=== PATIENT | male | born 1955 | race Caucasian/White ===

== ENCOUNTER 2021-08-30 10:40 | Outpatient (CLI) | payer MEDICAID ==
[2021-08-30 18:22] LABS: BASOPHILS # (AUTO) 0.1 10^3/uL (0.0-0.1); BASOPHILS % (AUTO) 1.2 %; EOSINOPHILS # (AUTO) 0.1 10^3/uL (0.0-0.7); EOSINOPHILS % (AUTO) 1.8 %; HCT - HEMATOCRIT 47.1 % (42.0-52.0); HGB - HEMOGLOBIN 15.3 g/dL (14.0-18.0); LYMPHOCYTES # (AUTO) 1.4 10^3/uL (1.5-3.5); LYMPHOCYTES % (AUTO) 29.5 %; MEAN CORPUSCULAR HEMOGLOBIN 32.1 pg (27.0-31.0); MEAN CORPUSCULAR HGB CONC 32.5 g/dL (32.0-36.0); MEAN CORPUSCULAR VOLUME 98.9 fL (80.0-94.0); MONOCYTES # (AUTO) 0.4 10^3/uL (0.0-1.0); MONOCYTES % (AUTO) 7.4 %; NEUTROPHILS # (AUTO) 2.9 10^3/uL (1.5-6.6); NEUTROPHILS % (AUTO) 59.9 %; PLT - PLATELET COUNT 268 10^3/uL (130-450); RED BLOOD COUNT 4.76 10^6/uL (4.70-6.10); RED CELL DISTRIBUTION WIDTH 12.1 % (12.0-15.0); WHITE BLOOD COUNT 4.9 x10^3/uL (4.8-10.8)
[2021-08-30 18:57] LABS: ALBUMIN 4.7 g/dL (3.2-5.5); ALBUMIN/GLOBULIN RATIO 1.8 (1.0-2.2); ALKALINE PHOSPHATASE 45 IU/L (42-121); ALT ALANINE AMINOTRANSFERASE 26 IU/L (10-60); AST ASPARTATE AMINOTRANSFERASE 24 IU/L (10-42); BILIRUBIN,TOTAL 1.1 mg/dL (0.2-1.0); BUN - BLOOD UREA NITROGEN 19 mg/dL (6-20); CALCIUM 9.8 mg/dL (8.5-10.3); CARBON DIOXIDE - CO2 26 mmol/L (21-32); CHLORIDE 109 mmol/L (101-111); CHOL/HDL RATIO 3.7 (<5.0); CHOLESTEROL 259 mg/dL; CREATININE 0.8 mg/dL (0.6-1.2); GFR - MDRD 97 (>89); GLUCOSE 103 mg/dL (70-100); HDL CHOLESTEROL 70 mg/dL; LDL CHOLESTEROL,CALCULATED 167 mg/dL; LDL/HDL RATIO 2.4 (<3.6); POTASSIUM 4.3 mmol/L (3.5-5.0); SODIUM 145 mmol/L (135-145); TOTAL PROTEIN 7.3 g/dL (6.7-8.2); TRIGLYCERIDES 112 mg/dL; VLDL CHOLESTEROL 22 mg/dL
== END 2021-08-30 10:41 | disposition home or self-care (01) ==
LOC: LAB.N 10:40
PROVIDERS: ATTEND Internal Medicine
DX: R10.32 Left lower quadrant pain (principal); R06.09 Other forms of dyspnea; R61 Generalized hyperhidrosis; Z13.6 Encounter for screening for cardiovascular disorders
CPT/HCPCS: 36415; 80053; 80061; 83721; 83880; 84443; 85025

== ENCOUNTER 2021-09-05 11:45 | Outpatient (CLI) | payer MEDICAID ==
[2021-09-05] MEDS ORDERED: IOVERSOL 320 50 ML VIAL ONE (12:01)
[2021-09-05] MEDS ORDERED: IOVERSOL 320 100 ML VIAL IVP ONE (12:01)
--- NOTE | 2021-09-05 13:50 | CT Report ---
PROCEDURE: Abdomen/Pelvis W INDICATIONS: LLQ PAIN CONTRAST: IV CONTRAST: Optiray 320 ml: 100 PO CONTRAST: Optiray 320 ml50 TECHNIQUE: After the administration of oral and intravenous contrast, 5 mm thick sections acquired from the diap hragms to the symphysis. 5 mm thick coronal and sagittal reformats were acquired. For radiation dos e reduction, the following was used: automated exposure control, adjustment of mA and/or kV accordin g to patient size. COMPARISON: None. FINDINGS: Image quality: Excellent. ABDOMEN: Lung bases: Lung bases are clear. Heart size is normal. Solid organs: Liver and spleen are normal in size and enhancement. Gallbladder is unremarkable. Bi liary system is non dilated. Pancreas enhances normally. No adrenal nodules. Kidneys demonstrate n ormal size and enhancement, without hydronephrosis. Peritoneum and bowel: Bowel loops demonstrate normal wall thickness and caliber. Normal appendix. No free fluid or air. Nodes and vessels: No retroperitoneal or mesenteric adenopathy by size criteria. Aorta and inferior vena cava are normal in size. Mild aortic atherosclerotic calcifications. Miscellaneous: No ventral hernias. PELVIS: Genitourinary: Bladder wall thickness is normal. Miscellaneous: No inguinal hernias or adenopathy. Bones: No suspicious bony lesions. No vertebral body compression fractures. IMPRESSION: No acute abnormality is identified in the abdomen or pelvis. Reviewed by: Felix Lyon MD on 09/05/2021 1:49 PM PST Approved by: Felix Lyon MD on 09/05/2021 1:49 PM PST Station ID: [id number]
[2021-09-05] MEDS: IOVERSOL 320 100 ML VIAL IVP ONE (15:44)
[2021-09-05] MEDS: IOVERSOL 320 50 ML VIAL PO ONE (15:44)
== END 2021-09-05 11:46 | disposition home or self-care (01) ==
LOC: DI 11:45
PROVIDERS: ATTEND Internal Medicine
DX: R10.32 Left lower quadrant pain (principal)
CPT/HCPCS: 74177; Q9967

== ENCOUNTER 2022-05-09 08:00 | Outpatient (CLI) | payer MEDICAID | END 2022-05-09 23:59 | disposition home or self-care (01) | LOC: LAB.R 08:00 | PROVIDERS: ATTEND Internal Medicine | DX: R10.9 Unspecified abdominal pain (principal); R51.9 Headache, unspecified; R42 Dizziness and giddiness; H93.19 Tinnitus, unspecified ear | CPT/HCPCS: 83880; 85651; 86140 ==

== ENCOUNTER 2022-05-17 23:04 | Emergency (ER) | payer MEDICAID ==
[2022-05-18 00:19] LABS: BASOPHILS # (AUTO) 0.1 10^3/uL (0.0-0.1); BASOPHILS % (AUTO) 1.2 %; EOSINOPHILS # (AUTO) 0.2 10^3/uL (0.0-0.7); EOSINOPHILS % (AUTO) 2.7 %; HCT - HEMATOCRIT 44.5 % (42.0-52.0); LYMPHOCYTES # (AUTO) 1.6 10^3/uL (1.5-3.5); LYMPHOCYTES % (AUTO) 23.3 %; MEAN CORPUSCULAR HEMOGLOBIN 32.3 pg (27.0-31.0); MEAN CORPUSCULAR HGB CONC 33.7 g/dL (32.0-36.0); MEAN CORPUSCULAR VOLUME 95.9 fL (80.0-94.0); MEAN PLATELET VOLUME 9.9 fL (7.4-11.4); MONOCYTES # (AUTO) 0.6 10^3/uL (0.0-1.0); MONOCYTES % (AUTO) 9.6 %; NEUTROPHILS # (AUTO) 4.2 10^3/uL (1.5-6.6); PLT - PLATELET COUNT 235 10^3/uL (130-450); RED BLOOD COUNT 4.64 10^6/uL (4.70-6.10); RED CELL DISTRIBUTION WIDTH 11.9 % (12.0-15.0); WHITE BLOOD COUNT 6.6 x10^3/uL (4.8-10.8)
--- NOTE | 2022-05-18 00:31 | XRAY Report ---
PROCEDURE: Chest 1 View X-Ray INDICATIONS: SOA TECHNIQUE: One view of the chest was acquired. COMPARISON: None. FINDINGS: Surgical changes and devices: None. Lungs and pleura: No pleural effusions or pneumothorax. Lungs are clear. Mediastinum: Mediastinal contours appear normal. Heart size is normal. Bones and chest wall: No suspicious bony lesions. Overlying soft tissues appear unremarkable. IMPRESSION: 1. No acute cardiopulmonary disease. Reviewed by: Kris Chaudhry MD on 05/18/2022 12:29 AM PDT Approved by: Kris Chaudhry MD on 05/18/2022 12:29 AM PDT Station ID: [id number]
[2022-05-18 00:32] LABS: ALBUMIN 4.1 g/dL (3.2-5.5); ALBUMIN/GLOBULIN RATIO 1.5 (1.0-2.2); BILIRUBIN,TOTAL 0.9 mg/dL (0.2-1.0); CALCIUM 9.5 mg/dL (8.5-10.3); CREATININE 0.8 mg/dL (0.6-1.2); POTASSIUM 3.7 mmol/L (3.5-5.0); TOTAL PROTEIN 6.8 g/dL (6.7-8.2)
--- NOTE | 2022-05-18 01:09 | ED Physician Documentation ---
History of Present Illness - Stated complaint Stated Complaint: HIGH BP - Chief complaint Chief Complaint: Cardiac - History obtained from History obtained from: Patient - Additonal information Additional information: Patient is a 66-year-old male who is Presenting for evaluation of elevated blood pressure. Over the last several months he has had intermittent episodes of feeling dizzy or lightheaded and short of breath. He has these episodes more in the evening and per his seems to occur more after eating.He denies vertigo. He does occasionally have abdominal discomforts which have been worked up with no clear cause. This evening after an episode they checked his blood pressure and noticed that it was elevated at 180/90. They rechecked it a few minutes later and it was back down to normal. He does not have a history of hypertension. He had a similar episode 2 days ago. He recently saw his PCP for the symptoms other than the high blood pressure readings and is scheduled to hav e a stress test as well as a colonoscopy soon. Patient reports that these episodes are intermittent where he will feel short of breath or dizzy and lightheaded. He denies having chest pain or palpitations. He reports that he is very active and can play and full round of golf without difficulty but sometimes will have episodes such as walking up the stairs where he Needs to catch his breath. He currently feels back to normal. Review of Systems Constitutional: denies: Fever Nose: denies: Congestion Throat: denies: Sore throat Cardiac: denies: Chest pain / pressure, Palpitations Respiratory: reports: Dyspnea (Intermittent, not currently present today). denies: Cough GI: denies: Abdominal Pain, Nausea, Vomiting : denies: Dysuria Musculoskeletal: denies: Back pain Neurologic: denies: Syncope, Headache PD PAST MEDICAL HISTORY - Present Medications Home Medications: Ambulatory Orders Medication Instructions Recorded Confirmed No Known Home Medications 05/17/22 05/17/22 - Allergies Allergies/Adverse Reactions: Allergies Allergy/AdvReac Type Severity Reaction Status Date / Time No Known Drug Allergies Allergy Verified 05/17/22 23:14 PD ED PE NORMAL - General General: Alert and oriented X 3, No acute distress, Well developed/nourished - HEENT HEENT: Atraumatic, Moist mucous membranes, Pharynx benign - Neck Neck: Supple, no meningeal sign - Cardiac Cardiac: No murmur, Strong equal pulses, Other (Regular rhythm, bradycardic in the 40s which she states is normal for him) - Respiratory Respiratory: No respiratory distress, Clear bilaterally - Abdomen Abdomen: Normal bowel sounds, Soft, Non tender, Non distended - Derm Derm: Warm and dry - Extremities Extremities: No edema, No calf tenderness / cord - Neuro Neuro: Alert and oriented X 3, 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, No motor deficit, Normal speech, Other (Normal gait) Results - Vitals Vitals: Vital Signs - 24 hr 05/17/22 05/17/22 05/18/22 23:10 23:56 00:59 Temperature 36.0 C L Heart Rate 98 48 L 52 L Respiratory 15 18 18 Rate Blood Pressure 143/75 H 133/73 H 133/72 H O2 Saturation 100 98 98 05/18/22 01:00 Temperature Heart Rate 54 L Respiratory 18 Rate Blood Pressure 135/74 H O2 Saturation 98 Oxygen O2 Source Room air - EKG (time done) 0013 Rate: Rate (enter#) (48) Rhythm: Sinus bradycardia Intervals: No: Prolonged QT Ischemia: No: ST elevation c/w ischemia - Labs Labs: Laboratory Tests 05/17/22 05/17/22 00:12 00:12 WBC 6.6 RBC 4.64 L Hgb 15.0 Hct 44.5 MCV 95.9 H MCH 32.3 H MCHC 33.7 RDW 11.9 L Plt Count 235 MPV 9.9 Neut # (Auto) 4.2 Lymph # (Auto) 1.6 [place] # (Auto) 0.6 Eos # (Auto) 0.2 Baso # (Auto) 0.1 Absolute Nucleated RBC 0.00 Nucleated RBC % 0.0 Sodium 138 Potassium 3.7 Chloride 102 Carbon Dioxide 28 Anion Gap 8.0 BUN 18 Creatinine 0.8 Estimated GFR (MDRD) 97 Glucose 116 H Calcium 9.5 Total Bilirubin 0.9 AST 30 ALT 23 Alkaline Phosphatase 43 Total Protein 6.8 Albumin 4.1 Globulin 2.7 Albumin/Globulin Ratio 1.5 PD MEDICAL DECISION MAKING - ED course Complexity details: reviewed results, re-evaluated patient, d/w patient, d/w family ED course: Patient presenting for evaluation of elevated blood pressure reading this evening. On arrival he is asymptomatic. He has had other recent episodes of intermittent shortness of breath and dizziness. Pressure here is normal. EKG is sinus bradycardia without signs of acute ischemia. Patient has denied chest pain or other symptoms to suggest ACS. No signs of a stroke. Screening labs obtained without significant findings and chest x-ray is clear. Again patient feels well here with normal blood pressure readings. Discussed plan for continued follow-up with his PCP and plans for outpatient stress test and colonoscopy per her recommendations. He is advised on return precautions. Ambulatory at discharge. Departure - Departure Disposition: Home, Self Care Clinical Impression: Elevated blood pressure reading Condition: Stable Instructions: ED Dizziness [facility] Comments: Julio lerma were evaluated for an elevated blood pressure reading at home. Fortunately your blood pressure has been within a normal range in the emergency department. You have also recently had some symptoms including dizziness and shortness of breath. Your EKG shows a Low heart rate but otherwise normal rhythm. At the low heart rate by itself is not dangerous and that she were having certain symptoms. Your blood work is overall reassuring and your chest x-ray is clear. Please continue to follow-up with your primary care doctor especially regarding your planned stress test and a colonoscopy. You have any new symptoms please consider return to the emergency department. Discharge Date/Time: 05/18/22 01:15
[2022-05-18 01:11] VITALS: BP 135/74
== END 2022-05-18 01:15 | disposition home or self-care (01) ==
LOC: ED 23:04
DX: R03.0 Elevated blood-pressure reading, without diagnosis of hypertension (principal); R06.00 Dyspnea, unspecified; R42 Dizziness and giddiness
CPT/HCPCS: 36415; 80053; 85025; 93005; 99284

== ENCOUNTER 2022-06-13 08:00 | Outpatient (CLI) | payer MEDICAID ==
[2022-06-13 16:34] LABS: PSA TOTAL 1.139 ng/mL (0.000-2.000)
[2022-06-13 18:01] LABS: CALCIUM 9.6 mg/dL (8.5-10.3); CREATININE 0.7 mg/dL (0.6-1.2); MAGNESIUM 2.3 mg/dL (1.7-2.8); POTASSIUM 4.4 mmol/L (3.5-5.0)
== END 2022-06-13 23:59 | disposition home or self-care (01) ==
LOC: LAB.R 08:00
PROVIDERS: ATTEND Internal Medicine
DX: R10.9 Unspecified abdominal pain (principal); R19.4 Change in bowel habit; R07.9 Chest pain, unspecified; R06.00 Dyspnea, unspecified; R51.9 Headache, unspecified; R22.1 Localized swelling, mass and lump, neck; R25.3 Fasciculation; R39.12 Poor urinary stream; H93.19 Tinnitus, unspecified ear
CPT/HCPCS: 80048; 81599; 83735; 84153; 86618

== ENCOUNTER 2023-11-25 02:28 | Outpatient (CLI) | payer MEDICAID, MEDICARE | END 2023-11-25 02:29 | disposition EMS.NT | LOC: EMS 02:28 | DX: R09.89 Other specified symptoms and signs involving the circulatory and respiratory systems (principal); F41.9 Anxiety disorder, unspecified ==